=== PATIENT | female | born 1970 | race African-American/Black ===

== ENCOUNTER 2017-02-12 19:50 | Emergency (ER) | payer MEDICAID, OTHER ==
[~2017-02-12] VITALS: Ht 170.2 cm; Wt 77.1 kg
[~2017-02-12 19:50] MED LIST: ALBUTEROL SULF8.5 GM INH; AZITHROMYCIN250 MG ORAL; BACTRIM DS TAB1 EAC1 ORAL; CLINDAMYCIN HC300 MG ORAL; IBUPROFEN400 MG PO; IBUPROFEN600 MG ORAL; NORCO 5-325 TA1 EACH ORAL; PREDNISONE20 MG ORAL; ROBAXIN-750750 MG PO
[2017-02-12] MEDS ORDERED: NKM (20:00)
[2017-02-12 20:10] VITALS: BP 166/94
[2017-02-12] MEDS ORDERED: IBUPROFEN600 MG ORAL (20:24)
[2017-02-12] MEDS ORDERED: ROBAXIN-750750 MG PO (20:24)
[2017-02-12 20:40] VITALS: BP 166/94
--- NOTE | 2017-02-12 20:54 | Emergency Room Report ---
History of Present Illness General Chief Complaint: Generalized Weakness Source: Patient Present Illness HPI 46-year-old female presenting with episode of generalized weakness. Patient does not have any past medical history. She states that she has been under a great deal of stress, she has been moving to a new house, has been carrying heavy boxes, with her 2 daughters, carrying a box upstairs. States that yesterday both of her legs became very stiff and her back was very stiff. States that she was only able to walk but in a shuffling manner. Denies any numbness to legs, no urinary retention or incontinence, no history of IV drug abuse. Denies any fever or chills. Patient states that she drove here with her daughters, states that she just wanted to be checked out. Patient states that today she has been able to walk without issue Allergies: Coded Allergies: No Known Allergies (Unverified , 12/23/11) Patient History Past Medical History: see triage record Past Surgical History: none Pertinent Family History: none Last Menstrual Period: Dec Reviewed Nursing Documentation: PMH: Agreed, PSxH: Agreed Nursing Documentation-PMH Hx Hypertension: Yes Review of Systems All Other Systems: negative except mentioned in HPI Physical Exam Vital Signs Date Time Temp Pulse Resp B/P (MAP) Pulse Ox O2 Delivery O2 Flow Rate FiO2 02/12/17 19:53 97.9 68 16 187/99 100 Room Air Sp02 EP Interpretation: reviewed, normal General Appearance: normal inspection, well appearing, no apparent distress, alert, GCS 15, non-toxic Head: normocephalic, atraumatic Eyes: bilateral eye normal inspection, bilateral eye PERRL, bilateral eye EOMI ENT: normal ENT inspection, normal pharynx, normal voice, moist mucus membranes Neck: normal inspection, full range of motion, supple Respiratory: normal inspection, lungs clear, normal breath sounds, no respiratory distress, no retraction, no wheezing, speaking full sentences, chest symmetrical Cardiovascular #1: normal inspection, regular rate, rhythm, no edema, normal capillary refill Cardiovascular #2: 2+ radial (R), 2+ radial (L) Gastrointestinal: normal inspection, non tender, soft, non-distended, no guarding Musculoskeletal: normal inspection, back normal, normal range of motion, non- tender Neurologic: normal inspection, alert, oriented x3, responsive, skirt clipper III-XII nml as tested, motor strength/tone normal, sensory intact, normal gait, speech normal Psychiatric: normal inspection, judgement/insight normal, memory normal Skin: normal inspection, normal color, no rash, warm/dry, well hydrated, normal turgor Medical Decision Making Diagnostic Impression: Primary Impression: Episode of generalized weakness ER Course 46-year-old female with episode of stiffness of her bilateral lower legs DDX: likely musculoskeletal back pain vs. muscular strain vs. sciatica Lumbar fracture is unlikely given patients age, no midline tenderness, no history of trauma, and that patient is ambulatory. Therefore, at this time no imaging is indicated Serious diagnoses such as cord compression, epidural abscess is unlikely in this patient given the clinical scenario and abscess of neurological symptoms or findings. Patient appears nontoxic. Guillain [place] is low on the differential as well, she is currently completely neurologically intact, no weakness, no recent viral illness or diarrhea Plan: motrin ER course: Patient has remained nontoxic appearing and ambulatory in the ED. Pain improved w/ medications Disposition: Patient will be discharged to home with prescription of motrin and robaxin. Patient cautioned of the effects of robaxin including possible impairment of physical or mental abilities. Patient was instructed to refrain from operating machinery or driving. Patient is also cautioned on the GI effects of motrin and to take sparingly. Patient verbalized understanding. Strict precautions discussed with patient on when to emergently return to the ED which includes severe/worsening back pain, leg weakness/numbness, urinary retention/incontinence, fever or chills, which may indicate severe illness. Patient is to follow up with their PMD within 5 days. Patient agrees with plan. Please note that this Emergency Department Report was dictated using [employer] machine operator technology software, occasionally this can lead to erroneous entry secondary to interpretation by the dictation equipment. Last Vital Signs Date Time Temp Pulse Resp B/P (MAP) Pulse Ox O2 Delivery O2 Flow Rate FiO2 02/12/17 20:40 68 15 166/94 100 Room Air 02/12/17 20:10 97.9 Disposition: HOME, SELF-CARE Condition: Improved Scripts Methocarbamol* (ROBAXIN-750*) 750 Mg Tablet 750 MG PO QID, #28 TAB 0 Refills Prov: Nu Crain M.D. 02/12/17 Ibuprofen* (MOTRIN*) 600 Mg Tablet 600 MG ORAL Q8H Y for For Pain, #30 TAB 0 Refills Prov: Nu Crain M.D. 02/12/17 Referrals: [employer] [facility],REFERRIN (PCP) Patient Instructions: Weakness Additional Instructions: Please come back to the emergency room if you are experiencing weakness of your legs, inability to urinate, numbness, fever or chills. Nu Crain M.D. Feb 12, 2017 20:53
== END 2017-02-12 20:40 | disposition home or self-care (01) ==
LOC: EMR 20:40
DX: R53.1 Weakness (principal); I10 Essential (primary) hypertension
CPT/HCPCS: 99284

== ENCOUNTER 2018-12-25 08:44 | Emergency (ER) | payer MEDICAID, OTHER ==
[~2018-12-25] VITALS: Ht 170.2 cm; Wt 77.1 kg
[~2018-12-25 08:44] MED LIST changes: +NKM
[2018-12-25 08:47] VITALS: BP 153/105
--- NOTE | 2018-12-25 08:55 | NUR ---
ED Nurse Note: Patient walked in to ER due to 'spider bite' yesterday; patient reports pain, swelling over the left lateral side of LLE since yesterday. Limping noted. Reports no fever, chills at this time. Reports no recent travel or outdoor activity. Approximately palm size of swollen area below the left knee, lateral side of LLE noted. No redness found. Patient awake, alert, oriented x4. Regular, unlabored breathing with clear breath sounds in all lung salazar noted.
--- NOTE | 2018-12-25 08:56 | NUR ---
ED Nurse Note: No facial grimacing or guarding noted.
[2018-12-25] MEDS ORDERED: IBUPROFEN600 MG ORAL (09:01)
[2018-12-25] MEDS ORDERED: BENADRYL25 M3 PO (09:01)
[2018-12-25] MEDS ORDERED: HYDROCORTISONE-30 GM TOPIC (09:01)
--- NOTE | 2018-12-25 09:04 | Emergency Room Report ---
History of Present Illness General Chief Complaint: Skin Rash/Abscess Source: Patient Present Illness HPI Patient is a 48-year-old female presents after increased left lower extremity discomfort and swelling. She reports having a recent insect bite to the area. She states this had become more swollen. She denies any fever. She had onset of symptoms yesterday. Patient stated that she has been having increased pain with ambulation. She reports taking ibuprofen as well as ice in the area. She denies any fever. She reports being a smoker. She denies any shortness of breath or difficulty with speech. Allergies: Coded Allergies: No Known Allergies (Unverified , 12/23/11) Patient History Past Medical History: see triage record Last Menstrual Period: 10/30/2018 Reviewed Nursing Documentation: PMH: Agreed; PSxH: Agreed Nursing Documentation-PMH Hx Cardiac Problems: No Hx Hypertension: Yes Hx Pacemaker: No Hx Asthma: No Hx COPD: No Hx Diabetes: No Hx Cancer: No Hx Gastrointestinal Problems: No Hx Dialysis: No History Of Psychiatric Problem: No Hx Neurological Problems: No Hx Cerebrovascular Accident: No Hx Seizures: No Review of Systems All Other Systems: negative except mentioned in HPI Physical Exam Vital Signs Date Time Temp Pulse Resp B/P (MAP) Pulse Ox O2 Delivery O2 Flow Rate FiO2 12/25/18 08:47 98.2 16 153/105 98 Room Air 12/25/18 08:47 74 General Appearance: well appearing, no apparent distress, alert, GCS 15 Head: normocephalic, atraumatic ENT: hearing grossly normal, normal voice Neck: full range of motion, supple Respiratory: no respiratory distress, speaking full sentences Gastrointestinal: normal inspection Musculoskeletal: normal inspection, no calf tenderness Neurologic: normal inspection, alert, oriented x3, responsive, normal gait Psychiatric: mood/affect normal Skin: warm/dry, other - slight soft tissue swelling to left side of leg below the knee without erythema or swelling Medical Decision Making Diagnostic Impression: Primary Impression: Insect bite Additional Impression: Left leg swelling ER Course Patient presented for skin rash. Differential diagnosis include was not limited to insect bite, abscess, cellulitis, among others. Patient has a benign exam and does not appear to require any imaging or laboratory testing at this time. Patient appears to have a noninfected insect bite. There does appear to be some soft tissue swelling. There is no evidence of abscess or systemic toxicity. the patient is advised to follow up with primary care doctor in 1-2 days. Patient is advised to return if any worsening condition or if any changes in status that are concerning. This report is dictated with [employer] oral pathologist software which may occasionally lead to discrepancies related to use of this software. Last Vital Signs Date Time Temp Pulse Resp B/P (MAP) Pulse Ox O2 Delivery O2 Flow Rate FiO2 12/25/18 08:47 98.2 74 16 153/105 (121) 98 Room Air Status: improved Disposition: HOME, SELF-CARE Condition: Stable Scripts Hydrocortisone/Aloe Vera 1%* (HYDROCORTISONE-ALOE 1% CREAM*) Y Cr 1 APPLIC TOPIC Q6H PRN for Itching, #30 GM Prov: Klever Kang MD 12/25/18 Diphenhydramine HCl (Benadryl) 25 Mg Capsule 25 MG PO EVERY 6 HOURS, #30 CAP Prov: Klever Kang MD 12/25/18 Ibuprofen* (MOTRIN*) 600 Mg Tablet 600 MG ORAL Q8H PRN for For Pain, #30 TAB 0 Refills Prov: Klever Kang MD 12/25/18 Patient Instructions: Insect Bite, [id number] Klever Kang MD Dec 25, 2018 09:04
--- NOTE | 2018-12-25 09:10 | NUR ---
ER DISCHARGE NOTE: Patient is cleared to be discharged per ERMD, pt is aox4, on room air, with stable vital signs. pt was given dc and prescription instructions, pt was able to verbalize understanding, pt id band removed without complications. pt is able to ambulate with steady gait. pt took all belongings.
== END 2018-12-25 09:10 | disposition home or self-care (01) ==
LOC: EMR 09:05
DX: R22.42 Localized swelling, mass and lump, left lower limb (principal); I10 Essential (primary) hypertension; F17.200 Nicotine dependence, unspecified, uncomplicated; S80.862A Insect bite (nonvenomous), left lower leg, initial encounter; W57.XXXA Bitten or stung by nonvenomous insect and other nonvenomous arthropods, initial encounter; Y92.9 Unspecified place or not applicable
CPT/HCPCS: 99282

== ENCOUNTER → 2020-04-16 | Emergency (ER) | payer MEDICAID ==
[~2020-04-16] VITALS: Ht 170.2 cm; Wt 77.1 kg
[~2020-04-16] MED LIST changes: +AMLODIPINE BESYL5 MG ORAL; +ATIVAN0.5 MG ORAL; +BENADRYL25 M3 PO; +BENADRYL25 MG ORAL; +DiphenhydrAMINE 50mg/ml Inj IVP ONE; +HYDROCORTISONE-30 GM TOPIC
--- NOTE | 2020-04-16 12:05 | NUR ---
ED Nurse Note: Pt walked in from home c/o SOB x a couple days. Pt reports going to urgent care yesterday for same symptoms, diagnosed with bronchitis, negative for COVID, and prescribed abx. Pt worried about her blood pressure. BP 191/133 at triage. Respirations labored with exertion. A+Ox4, speaking in complete sentences. All other vitals stable as documented.
--- NOTE | 2020-04-16 12:30 | NUR ---
ED Nurse Note: xr @ bedside
[2020-04-16 12:48] LABS: APPEARANCE,URINE CLEAR; BILIRUBIN, URINE NEGATIVE (NEGATIVE); COLOR,URINE PALE YELLOW; GLUCOSE, URINE (UA) NEGATIVE (NEGATIVE); KETONES,URINE NEGATIVE (NEGATIVE); LEUKOCYTE ESTERASE ,URINE NEGATIVE (NEGATIVE); NITRITE,URINE NEGATIVE (NEGATIVE); PH,URINE 6.5 (4.5-8.0); PROTEIN,URINE NEGATIVE (NEGATIVE); UROBILINOGEN,URINE NORMAL MG/DL (0.0-1.0)
[2020-04-16 12:50] LABS: BASOPHILS % (AUTO) 1.7 % (0.0-2.0); EOSINOPHILS % (AUTO) 2.6 % (0.0-3.0); HEMATOCRIT 37.9 % (37.0-47.0); HEMOGLOBIN 11.8 G/DL (12.0-16.0); LYMPHOCYTES % (AUTO) 17.1 % (20.0-45.0); MEAN CORPUSCULAR VOLUME 88 FL (80-99); MONOCYTES % (AUTO) 8.3 % (1.0-10.0); NEUTROPHILS % (AUTO) 70.3 % (45.0-75.0); PLATELET COUNT 285 K/UL (150-450); RED BLOOD COUNT 4.33 M/UL (4.20-5.40); RED CELL DISTRIBUTION WIDTH 15.5 % (11.6-14.8); WHITE BLOOD COUNT 9.5 K/UL (4.8-10.8)
--- NOTE | 2020-04-16 12:50 | Emergency Room Report ---
History of Present Illness General Chief Complaint: Hypertension Source: Patient Present Illness HPI Patient presents with shortness of breath dyspnea on exertion right-sided chest pain. She was seen in urgent care recently and prescribed azithromycin, Nasonex, albuterol. She tested negative for Covid at that time. She stopped smoking 5 months ago. At urgent care she was told that her blood pressure might have been high because she was upset. She has never been treated for hypertension in the past. She has had some right-sided chest pain and also there was a red lawrence and the back of her shoulder that seems to gotten better along with improvement in the chest pain. It was somewhat positional pleuritic. She felt somewhat better after initial treatment but then started getting short of breath this morning. She feels anxious when this occurs. 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 Patient denies exposure to Covid positive contacts. No sore throat, palpitations, nausea, vomiting, diarrhea, dysuria, abdominal pain, shortness of breath, joint pain, rashes, visual changes, dizziness, headache. Her last menstruation was last week and normal for her. All of her family members have hypertension. 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 Last Menstrual Period: 03/20 Reviewed Nursing Documentation: PMH: Agreed; PSxH: Agreed Nursing Documentation-PMH Hx Cardiac Problems: No Hx Hypertension: Yes Hx Pacemaker: No Hx Asthma: No Hx COPD: No Hx Diabetes: No Hx Cancer: No Hx Gastrointestinal Problems: No Hx Dialysis: No Hx Neurological Problems: No Hx Cerebrovascular Accident: No Hx Seizures: No Review of Systems All Other Systems: negative except mentioned in HPI Physical Exam Vital Signs Date Time Temp Pulse Resp B/P (MAP) Pulse Ox O2 Delivery O2 Flow Rate FiO2 04/16/20 11:58 98.2 112 18 191/133 (152) 96 Room Air Oxygen saturation at bedside is 100% which is interpreted by me as normal. Sp02 EP Interpretation: reviewed, other - See vital sign report General Appearance: well appearing, no apparent distress, GCS 15, non-toxic Head: normocephalic Eyes: bilateral eye normal inspection, bilateral eye PERRL, bilateral eye EOMI ENT: moist mucus membranes Neck: supple Respiratory: chest non-tender, lungs clear, normal breath sounds Cardiovascular #1: regular rate, rhythm Cardiovascular #2: 2+ radial (R) Gastrointestinal: normal inspection, normal bowel sounds, non tender, no mass, non-distended Musculoskeletal: back normal, normal range of motion, gait/station normal Neurologic: alert, oriented x3, grossly normal Psychiatric: other - Denies stress but is tearful Skin: warm/dry, other - Hyperpigmented streak right upper scapula Medical Decision Making Diagnostic Impression: Primary Impression: Dyspnea Qualified Codes: R06.09 - Other forms of dyspnea Additional Impressions: Hypertension Qualified Codes: I10 - Essential (primary) hypertension Stress COVID-19 test negative recently ER Course Patient presents with dyspnea and atypical chest pain. Differential includes acute myocardial infarction, acute coronary syndrome, pleurisy, pneumonia, pneumothorax amongst others. Patient appears to be under significant stress at this time however she denies this. Evaluation with EKG, chest x-ray and labs. Patient placed on internet sourcer. Patient treated with Benadryl and Tylenol. EKG no injury but voltage criteria for LVH. Chest x-ray negative. Labs unremarkable. Norvasc administered as blood pressure still high. Patient improved with treatment. Blood pressure improved. Discussed findings with patient. Discussed treatment plan with patient. No clinical emergency at this time. Patient stable for outpatient observation and treatment. Laboratory Tests Test 04/16/20 12:20 White Blood Count 9.5 K/UL (4.8-10.8) Red Blood Count 4.33 M/UL (4.20-5.40) Hemoglobin 11.8 G/DL (12.0-16.0) L Hematocrit 37.9 % (37.0-47.0) Mean Corpuscular Volume 88 FL (80-99) Mean Corpuscular Hemoglobin 27.2 PG (27.0-31.0) Mean Corpuscular Hemoglobin Concent 31.0 G/DL (32.0-36.0) L Red Cell Distribution Width 15.5 % (11.6-14.8) H Platelet Count 285 K/UL (150-450) Mean Platelet Volume 7.8 FL (6.5-10.1) Neutrophils (%) (Auto) 70.3 % (45.0-75.0) Lymphocytes (%) (Auto) 17.1 % (20.0-45.0) L Monocytes (%) (Auto) 8.3 % (1.0-10.0) Eosinophils (%) (Auto) 2.6 % (0.0-3.0) Basophils (%) (Auto) 1.7 % (0.0-2.0) Prothrombin Time 11.2 SEC (9.30-11.50) Prothrombin Time INR 1.0 (0.9-1.1) Activated Partial Thromboplast Time 29 SEC (23-33) Urine Color Pale yellow Urine Appearance Clear Urine pH 6.5 (4.5-8.0) Urine Specific [employer] 1.005 (1.005-1.035) Urine Protein Negative (NEGATIVE) Urine Glucose (UA) Negative (NEGATIVE) Urine Ketones Negative (NEGATIVE) Urine Blood 3+ (NEGATIVE) H Urine Nitrite Negative (NEGATIVE) Urine Bilirubin Negative (NEGATIVE) Urine Urobilinogen Normal MG/DL (0.0-1.0) Urine Leukocyte Esterase Negative (NEGATIVE) Urine RBC 0-2 /HPF (0 - 2) Urine WBC 0 /HPF (0 - 2) Urine Squamous Epithelial Cells Few /LPF (NONE/OCC) Urine Bacteria Occasional /HPF (NONE) Urine HCG, Qualitative Negative (NEGATIVE) Sodium Level 137 MMOL/L (136-145) Potassium Level 3.7 MMOL/L (3.5-5.1) Chloride Level 104 MMOL/L (98-107) Carbon Dioxide Level 22 MMOL/L (21-32) Anion Gap 11 mmol/L (5-15) Blood Urea Nitrogen 9 mg/dL (7-18) Creatinine 0.9 MG/DL (0.55-1.30) Estimated Glomerular Filtration Rate > 60 mL/min (>60) Glucose Level 110 MG/DL (74-106) H Calcium Level 9.2 MG/DL (8.5-10.1) Total Bilirubin 0.4 MG/DL (0.2-1.0) Aspartate Amino Transferase (AST) 16 U/L (15-37) Alanine Aminotransferase (ALT) 21 U/L (12-78) Alkaline Phosphatase 71 U/L (46-116) Total Creatine Kinase 83 U/L (26-308) Troponin I 0.004 ng/mL (0.000-0.056) Pro-B-Type Natriuretic Peptide 54 pg/mL (0-125) Total Protein 7.7 G/DL (6.4-8.2) Albumin 3.8 G/DL (3.4-5.0) Globulin 3.9 g/dL Albumin/Globulin Ratio 1.0 (1.0-2.7) Urine Opiates Screen Negative (NEGATIVE) Urine Barbiturates Screen Negative (NEGATIVE) Phencyclidine (PCP) Screen Negative (NEGATIVE) Urine Amphetamines Screen Negative (NEGATIVE) Urine Benzodiazepines Screen Negative (NEGATIVE) Urine Cocaine Screen Negative (NEGATIVE) Urine Marijuana (THC) Screen Negative (NEGATIVE) EKG Diagnostic Results Rate: normal Rhythm: NSR ST Segments: no acute changes - Left ventricular hypertrophy by voltage criteria which may be normal variant Rhythm Strip Diag. Results EP Interpretation: yes Rhythm: NSR, no PVC's, no ectopy Chest X-Ray Diagnostic Results Chest X-Ray Diagnostic Results : Chest X-Ray Ordered: Yes # of Views/Limited/Complete: 1 View Indication: Other EP Interpretation: Yes Interpretation: no consolidation, no effusion, no pneumothorax Impression: No acute disease Electronically Signed by: Electronically signed by Ritchie Hathaway MD Last Vital Signs Date Time Temp Pulse Resp B/P (MAP) Pulse Ox O2 Delivery O2 Flow Rate FiO2 04/16/20 14:30 97.8 74 20 161/100 99 Room Air Status: improved Disposition: HOME, SELF-CARE Condition: Improved Scripts Diphenhydramine Hcl* (BENADRYL*) 25 Mg Capsule 25 MG ORAL at hs PRN for congestion, #14 CAP Prov: Ritchie Hathaway MD 04/16/20 Lorazepam* (ATIVAN*) 0.5 Mg Tablet 0.5 MG ORAL THREE TIMES A DAY, #6 TAB Prov: Ritchie Hathaway MD 04/16/20 Amlodipine Besylate* (AMLODIPINE BESYLATE*) 5 Mg Tablet 5 MG ORAL DAILY for Hypertension, #30 TAB Prov: Ritchie Hathaway MD 04/16/20 Referrals: NON PHYSICIAN (PCP) Ritchie Hathaway MD Apr 16, 2020 12:50
[2020-04-16 12:55] LABS: ANION GAP 11 mmol/L (5-15); BLOOD UREA NITROGEN 9 mg/dL (7-18); CALCIUM 9.2 MG/DL (8.5-10.1); CARBON DIOXIDE 22 MMOL/L (21-32); CHLORIDE 104 MMOL/L (98-107); CREATININE 0.9 MG/DL (0.55-1.30); POTASSIUM 3.7 MMOL/L (3.5-5.1); SODIUM 137 MMOL/L (136-145)
[2020-04-16 13:00] VITALS: BP 173/113
[2020-04-16 13:06] LABS: ALANINE AMINOTRANSFERASE 21 U/L (12-78); ALBUMIN 3.8 G/DL (3.4-5.0); ALKALINE PHOSPHATASE 71 U/L (46-116); ASPARTATE AMINO TRANSFERASE 16 U/L (15-37); BILIRUBIN,TOTAL 0.4 MG/DL (0.2-1.0); CREATINE KINASE 83 U/L (26-308)
--- NOTE | 2020-04-16 13:13 | Diagnostic Imaging Report ---
EXAM: XR Chest, 1 View CLINICAL HISTORY: DYSPNEA TECHNIQUE: Frontal view of the chest. COMPARISON: Chest x-rays dated 04/19/13 FINDINGS: Lungs: Unremarkable. The lungs appear clear. No focal consolidation. Pleural space: Unremarkable. The costophrenic angles are sharp. No visible pneumothorax. Heart: Unremarkable. No cardiomegaly. Mediastinum: Unremarkable. Bones/joints: Unremarkable. Tubes, lines and devices: Telemetry leads overlie the thorax. IMPRESSION: No acute radiographic findings.
[2020-04-16 14:30] VITALS: BP 161/100
--- NOTE | 2020-04-16 14:30 | NUR ---
ER DISCHARGE NOTE: Patient is cleared to be discharged per ERMD, pt is aox4, on room air, with stable vital signs. pt was given dc and prescription instructions, pt was able to verbalize understanding, pt id band and iv site removed without complications. pt is able to ambulate with steady gait. pt took all belongings.
== END | disposition home or self-care (01) ==
LOC: EMR 12:24
DX: R06.09 Other forms of dyspnea (principal); I10 Essential (primary) hypertension; F43.9 Reaction to severe stress, unspecified
CPT/HCPCS: 36415; 71045; 80053; 80307; 81003; 81025; 82550; 83880; 84484; 85025; 85610; 85730; 93005; 96374; J1200; Z7502; 99284